=== PATIENT | female | born 1980 | race Caucasian/White ===

== ENCOUNTER 2017-06-05 23:29 | Emergency (ER) | payer OTHER ==
[2017-06-06 00:12] LABS: BILIRUBIN,URINE NEGATIVE (NEGATIVE)
[2017-06-06 00:13] LABS: UA w/ MICROSCOPIC CHARGE YES
[2017-06-06 00:14] LABS: HCG UR QUAL NEGATIVE
[2017-06-06 00:21] LABS: UR CULTURE IF IND INDICATED
[2017-06-06] MEDS ORDERED: PHENAZOPYRIDINE 100 MG TABLET PO STA (00:39)
[2017-06-06] MEDS ORDERED: cephALEXin 250 MG CAPSULE PO STA (00:39)
--- NOTE | 2017-06-06 00:41 | ED Physician Documentation ---
PD HPI FEMALE - Stated complaint Stated Complaint: FEMALE - Chief complaint Chief Complaint: General - History obtained from History obtained from: Patient - History of Present Illness Timing - onset: Yesterday Timing - details: Gradual onset, Still present Associated symptoms: Pelvic pain, Dysuria, Urinary frequency. No: Abdominal pain Contributing factors: No: Similar symptoms before: Treatment Recently seen: Not recently seen - Additional information Additional information: Patient is a 37 year old female wiht no significant past medical history who is presenting to the emergency department for dysuria and increased urinary frequency. Patient states that it has been going on the last few days. Patient sates that she was not able to get in to see her pmd and she developed some flank pain so she decided to come to the emergency department. Patient states that she is actively trying to get . Review of Systems Constitutional: denies: Fever, Chills Eyes: reports: Reviewed and negative Ears: reports: Reviewed and negative Nose: reports: Reviewed and negative Throat: reports: Reviewed and negative Cardiac: denies: Chest pain / pressure, Palpitations Respiratory: denies: Cough, Wheezing GI: reports: Nausea. denies: Abdominal Pain, Vomiting, Constipation, Diarrhea : reports: Dysuria, Frequency. 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 : None HEENT: None Psych: None Musculoskeletal: None Derm: None - Past Surgical History Past Surgical History: No - Present Medications Home Medications: Ambulatory Orders Medication Instructions Recorded Confirmed Levothyroxine [Synthroid] 112 mcg PO DAILY 09/05/14 06/05/17 Cephalexin [Keflex] 500 mg PO BID 7 Days #10 capsule 06/06/17 Ondansetron Odt [Zofran] 4 mg TL Q6H PRN #14 tablet 06/06/17 Phenazopyridine HCl [Pyridium] 200 mg PO TID PRN #6 tablet 06/06/17 - Allergies Allergies/Adverse Reactions: Allergies Allergy/AdvReac Type Severity Reaction Status Date / Time Sulfa (Sulfonamide Allergy Unknown Verified 06/05/17 23:52 Antibiotics) - Social History Does the pt smoke?: No Smoking Status: Never smoker Does the pt drink ETOH?: No Does the pt have substance abuse?: No - Immunizations Immunizations are current?: Yes - POLST Patient has POLST: No PD ED PE NORMAL - Vitals Vital signs reviewed: Yes - General General: Alert and oriented X 3, No acute distress, Well developed/nourished - HEENT HEENT: Atraumatic, PERRL, Pharynx benign - Neck Neck: Supple, no meningeal sign, No JVD - Cardiac Cardiac: RRR, No murmur - Respiratory Respiratory: No respiratory distress, Clear bilaterally - Abdomen Abdomen: Soft, Non tender, Non distended - Female Female : Deferred - Back Back: No CVA TTP - Derm Derm: Normal color, Warm and dry, No rash - Extremities Extremities: No deformity, Normal ROM s pain, No edema - Neuro Neuro: Alert and oriented X 3, No motor deficit, No sensory deficit, Normal speech - Psych Psych: Normal mood, Normal affect Results - Vitals Vitals: Vital Signs - 24 hr 06/05/17 23:51 Temperature 36.9 C Heart Rate 79 Respiratory 16 Rate Blood Pressure 145/103 H O2 Saturation 100 Oxygen O2 Source Room air - Labs Labs: Laboratory Tests 06/06/17 00:05 Urine Color YELLOW Urine Clarity CLEAR Urine pH 7.0 Ur Specific [place] 1.020 Urine Protein TRACE Urine Glucose (UA) NEGATIVE Urine Ketones NEGATIVE Urine Occult Blood MODERATE H Urine Nitrite NEGATIVE Urine Bilirubin NEGATIVE Urine Urobilinogen 0.2 (NORMAL) Ur Leukocyte Esterase NEGATIVE Urine RBC TNTC H Urine WBC 6-10 H Ur Squamous Epith Cells FEW Squamous Urine Bacteria Few Ur Microscopic Review INDICATED Urine Culture Comments INDICATED Urine HCG, Qual NEGATIVE PD MEDICAL DECISION MAKING - ED course Complexity details: reviewed old records, reviewed results, re-evaluated patient , considered differential, d/w patient ED course: Patient was seen and examined at bedside. Patient was well appearing and in no distress. urine was collected and showed signs concerning for cystitis. Patient was started on antibiotics and stable for discharge with outpatient follow up. Departure - Departure Disposition: 01 Home, Self Care Clinical Impression: Urinary tract infection Condition: Good Instructions: ED UTI Cystitis Female Follow-Up: DAMIEN MADISON [Primary Care Provider] - Within 3 Days Prescriptions: Cephalexin [Keflex] 500 mg PO BID 7 Days #10 capsule Ondansetron Odt [Zofran] 4 mg TL Q6H PRN #14 tablet PRN Reason: Nausea / Vomiting Phenazopyridine HCl [Pyridium] 200 mg PO TID PRN #6 tablet PRN Reason: dysuria Comments: Your symptoms today were likely secondary to a urinary tract infection. You had your first dose of antibiotics today and will need to take them for the next five days. It is important to stay well hydrated. You can take pyridium, motrin and tylenol as needed for pain. You should follow up with your doctor if your symptoms persist for more than the next few days. You can return to the emergency department at any time for new, worsening or uncontrollable symptoms.
[2017-06-06] MEDS ORDERED: cephALEXin 250 MG CAPSULE PO ONE (01:02)
[2017-06-06] MEDS ORDERED: PHENAZOPYRIDINE 100 MG TABLET PO ONE (01:02)
[2017-06-06 01:11] VITALS: BP 121/68
== END 2017-06-06 01:08 | disposition home or self-care (01) ==
LOC: ED 23:29
DX: N39.0 Urinary tract infection, site not specified (principal); E03.9 Hypothyroidism, unspecified
CPT/HCPCS: 81001; 81025; 87077; 87086; 87181; 99283; A9270; 81003

== ENCOUNTER 2017-06-22 12:02 | Emergency (ER) | payer OTHER ==
[2017-06-22 13:31] LABS: RAPID STREP SCREEN REAGENT QC YELLOW (YELLOW)
[2017-06-22] MEDS ORDERED: DEXAMETHASONE 10 MG/ML VIAL PO STA (13:50)
--- NOTE | 2017-06-22 13:52 | ED Physician Documentation ---
PD HPI HEENT - Stated complaint Stated Complaint: THROAT PX - Chief complaint Chief Complaint: Heent - History obtained from History obtained from: Patient - History of Present Illness Timing - onset: How many days ago (2) Timing - duration: Days (2) Timing - details: Gradual onset, Still present Location: Throat Improves: Medication Worsens: Swalllowing Associated symptoms: Fever, Congestion, Headache, Cough Similar symptoms before: Diagnosis (strep) Recently seen: Not recently seen - Additional information Additional information: 37-year-old female mother of 4 children who are sick with strep has developed symptoms. She has a sore throat fever congestion and cough. Review of Systems Constitutional: reports: Fever, Myalgias, Fatigue Eyes: denies: Decreased vision Ears: denies: Ear pain Nose: reports: Congestion Throat: reports: Sore throat Cardiac: denies: Chest pain / pressure, Palpitations Respiratory: reports: Cough. 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 HEENT: None Psych: None Musculoskeletal: None Derm: None - Past Surgical History Past Surgical History: No - Present Medications Home Medications: Ambulatory Orders Medication Instructions Recorded Confirmed Azithromycin [Zithromax] 250 mg PO DAILY #6 tablet 06/22/17 - Allergies Allergies/Adverse Reactions: Allergies Allergy/AdvReac Type Severity Reaction Status Date / Time Sulfa (Sulfonamide Allergy Unknown Verified 06/05/17 23:52 Antibiotics) - Social History Does the pt smoke?: No Smoking Status: Never smoker Does the pt drink ETOH?: Yes Does the pt have substance abuse?: No - Immunizations Immunizations are current?: Yes - POLST Patient has POLST: No PD ED PE NORMAL - Vitals Vital signs reviewed: Yes (Normal) - General General: No acute distress, Well developed/nourished - HEENT HEENT: Atraumatic, PERRL, EOMI, Other (Both TMs are mildly inflamed with rounding of landmarks the pharynx is with exudate and mild erythema.) - Neck Neck: Supple, no meningeal sign, No bony TTP - Cardiac Cardiac: RRR, No murmur - Respiratory Respiratory: No respiratory distress, Clear bilaterally - Abdomen Abdomen: Soft, Non tender - Back Back: No CVA TTP, No spinal TTP - Derm Derm: Normal color, Warm and dry, No rash - Extremities Extremities: No deformity, No edema - Neuro Neuro: No motor deficit, No sensory deficit Eye Opening: Spontaneous Motor: Obeys Commands Verbal: Oriented GCS Score: 15 - Psych Psych: Normal mood, Normal affect Results - Vitals Vitals: Vital Signs - 24 hr 06/22/17 12:19 Temperature 36.6 C Heart Rate 79 Respiratory 16 Rate O2 Saturation 99 Oxygen O2 Source Room air - Labs Labs: Laboratory Tests 06/22/17 13:05 Group A Strep Rapid Negative PD MEDICAL DECISION MAKING - ED course Complexity details: reviewed results, re-evaluated patient, considered differential, d/w patient ED course: 37-year-old female exposed to strep has a negative rapid strep this morning she does have otitis on examination and we will treat her with some azithromycin. Departure - Departure Disposition: 01 Home, Self Care Clinical Impression: Otitis media Qualifiers: Otitis media type: suppurative Chronicity: acute Laterality: bilateral Recurrence: not specified as recurrent Spontaneous tympanic membrane rupture: without spontaneous rupture Qualified Code(s): H66.003 - Acute suppurative otitis media without spontaneous rupture of ear drum, bilateral Instructions: ED Otitis Media Acute Adult Follow-Up: DAMIEN MADISON [Primary Care Provider] - Prescriptions: Azithromycin [Zithromax] 250 mg PO DAILY #6 tablet
[2017-06-22] MEDS ORDERED: DEXAMETHASONE 10 MG/ML VIAL ONE (14:01)
[2017-06-22] MEDS ORDERED: CHERRY SYRUP 10 ML UDC PO ONE (14:02)
== END 2017-06-22 14:25 | disposition home or self-care (01) ==
LOC: ED 12:02
DX: H66.003 Acute suppurative otitis media without spontaneous rupture of ear drum, bilateral (principal); E03.9 Hypothyroidism, unspecified
CPT/HCPCS: 87070; 87430; 99283; A9270

== ENCOUNTER 2017-12-13 16:29 | Emergency (ER) | payer OTHER ==
[2017-12-13 18:09] LABS: BILIRUBIN,URINE NEGATIVE (NEGATIVE); GLUCOSE, URINE (UA) NEGATIVE (NEGATIVE); KETONES,URINE (UA) NEGATIVE (NEGATIVE); LEUKOCYTE ESTERASE, URINE NEGATIVE (NEGATIVE); NITRITE,URINE NEGATIVE (NEGATIVE); OCCULT BLOOD,URINE NEGATIVE (NEGATIVE); PROTEIN,URINE NEGATIVE (NEGATIVE); UROBILINOGEN,URINE 0.2 (NORMAL) E.U./dL (NORMAL)
[2017-12-13 18:20] LABS: CLARITY,URINE CLEAR (CLEAR)
--- NOTE | 2017-12-13 19:15 | ED Physician Documentation ---
PD HPI ABD PAIN - Stated complaint Stated Complaint: ABD PX V/N - Chief complaint Chief Complaint: Abd Pain - History obtained from History obtained from: Patient - History of Present Illness Timing - onset: How many weeks ago (2-3) Timing - duration: Weeks (2-3) Timing - details: Gradual onset, Waxing and waning Quality: Aching, Sharp, Pain Location: RUQ, Epigastric Radiation: No: Lower back, Right flank, Right shoulder Improved by: No: Eating Worsened by: Eating Associated symptoms: Nausea, Loss of appetite, Other (she is 21 weeks.) . No: Fever, Vomiting, Diarrhea Similar symptoms before: Has not had sx before Recently seen: Clinic (seen by [employer] today and referred to ED for eval/US) Review of Systems Constitutional: denies: Fever Nose: denies: Rhinorrhea / runny nose, Congestion Throat: denies: Sore throat Cardiac: denies: Chest pain / pressure, Palpitations Respiratory: denies: Dyspnea, Cough GI: reports: Abdominal Pain, Nausea. 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 : None HEENT: None Psych: None Musculoskeletal: None Derm: None - Past Surgical History Past Surgical History: No - Present Medications Home Medications: Ambulatory Orders Medication Instructions Recorded Confirmed Azithromycin [Zithromax] 250 mg PO DAILY #6 tablet 06/22/17 Famotidine [Pepcid] 20 mg PO ONCE #30 tablet 12/13/17 Ondansetron Odt [Zofran] 4 mg TL Q6H PRN #15 tablet 12/13/17 Promethazine Supp [Phenergan Supp] 25 mg SD Q6H PRN #5 supp 12/13/17 Sucralfate 1 gm PO TID #15 tablet 12/13/17 - Allergies Allergies/Adverse Reactions: Allergies Allergy/AdvReac Type Severity Reaction Status Date / Time Sulfa (Sulfonamide Allergy Unknown Verified 06/05/17 23:52 Antibiotics) - Social History Does the pt smoke?: No Smoking Status: Never smoker Does the pt drink ETOH?: Yes Does the pt have substance abuse?: No - Immunizations Immunizations are current?: Yes - POLST Patient has POLST: No PD ED PE NORMAL - Vitals Vital signs reviewed: Yes - General General: Alert and oriented X 3, No acute distress, Well developed/nourished - HEENT HEENT: Pharynx benign - Neck Neck: Supple, no meningeal sign, No adenopathy - Cardiac Cardiac: RRR, No murmur - Respiratory Respiratory: Clear bilaterally - Abdomen Abdomen: Normal bowel sounds, Soft, Non distended, No organomegaly, Other ( tender RUQ without percussion tenderness nor guarding. Gravid with fundus above umbilicus. ) - Female Female : Deferred - Rectal Rectal: Deferred - Back Back: No CVA TTP - Derm Derm: Normal color, Warm and dry, No rash - Extremities Extremities: No tenderness to palpate, Normal ROM s pain, No edema, No calf tenderness / cord - Neuro Neuro: Alert and oriented X 3, No motor deficit, Normal speech Results - Vitals Vitals: Oxygen O2 Source Room air - Labs Labs: Laboratory Tests 12/13/17 12/13/17 12/13/17 17:08 19:39 19:39 WBC 10.0 RBC 4.12 L Hgb 12.1 Hct 36.2 L MCV 87.7 MCH 29.5 MCHC 33.6 RDW 13.3 Plt Count 209 MPV 8.3 Neut # 7.5 H Lymph # 1.6 Shannon # 0.7 Eos # 0.2 Baso # 0.0 Absolute Nucleated RBC 0.00 Nucleated RBC % 0.0 Sodium 134 L Potassium 3.5 Chloride 101 Carbon Dioxide 25 Anion Gap 8.0 BUN 6 Creatinine 0.5 Estimated GFR (MDRD) 138 Glucose 106 H Calcium 9.3 Total Bilirubin 0.4 AST 12 ALT 13 Alkaline Phosphatase 49 Total Protein 6.8 Albumin 3.5 Globulin 3.3 Albumin/Globulin Ratio 1.1 Lipase 23 Urine Color YELLOW Urine Clarity CLEAR Urine pH 6.0 Ur Specific [place] 1.010 Urine Protein NEGATIVE Urine Glucose (UA) NEGATIVE Urine Ketones NEGATIVE Urine Occult Blood NEGATIVE Urine Nitrite NEGATIVE Urine Bilirubin NEGATIVE Urine Urobilinogen 0.2 (NORMAL) Ur Leukocyte Esterase NEGATIVE Ur Microscopic Review NOT INDICATED Urine Culture Comments NOT INDICATED PD MEDICAL DECISION MAKING - ED course Complexity details: considered differential (sounded like gallbladder, but labs and U/S are normal. Consider duodenitis or gastritis. ), d/w patient Departure - Departure Disposition: 01 Home, Self Care Clinical Impression: Right upper quadrant abdominal pain Qualifiers: Weeks of gestation: 21 weeks Qualified Code(s): Z3A.21 - 21 weeks gestation of Vomiting Qualifiers: Vomiting type: unspecified Vomiting Intractability: non-intractable Nausea presence: with nausea Qualified Code(s): R11.2 - Nausea with vomiting, unspecified Condition: Stable Record reviewed to determine appropriate education?: Yes Instructions: ED Abdominal Pain Unkn Cause Follow-Up: DAMIEN MADISON [Primary Care Provider] - Prescriptions: Famotidine [Pepcid] 20 mg PO ONCE #30 tablet Ondansetron Odt [Zofran] 4 mg TL Q6H PRN #15 tablet PRN Reason: Nausea / Vomiting Promethazine Supp [Phenergan Supp] 25 mg SD Q6H PRN #5 supp PRN Reason: Nausea / Vomiting Sucralfate 1 gm PO TID #15 tablet Comments: Your blood tests and ultrasound appear normal. It does not appear to be a gallbladder or pancreas problem causing your pain. Consider the stomach or initial part of the intestine call the duodenum. Take famotidine daily for the next month. Add sucralfate to coat the stomach and duodenum 3 times a day for the next few days. Use ondansetron if needed for nausea. He can use promethazine suppository if needed for persistent vomiting despite the medicine. Follow-up with your primary care in the next few days for a recheck and follow-up on your symptoms. Discharge Date/Time: 12/13/17 21:32
[2017-12-13] MEDS ORDERED: ONDANSETRON 4 MG/2 ML VIAL IVP STA (19:29)
[2017-12-13] MEDS ORDERED: SODIUM CHLORIDE 0.9% 1,000 ML IV ONE (19:29)
[2017-12-13 19:46] LABS: BASOPHILS % (AUTO) 0.5 %; EOSINOPHILS # (AUTO) 0.2 10^3/uL (0.0-0.7); HGB - HEMOGLOBIN 12.1 g/dL (12.0-16.0); LYMPHOCYTES # (AUTO) 1.6 10^3/uL (1.5-3.5); LYMPHOCYTES % (AUTO) 16.1 %; MEAN CORPUSCULAR HEMOGLOBIN 29.5 pg (27.0-31.0); MEAN CORPUSCULAR HGB CONC 33.6 g/dL (32.0-36.0); MEAN CORPUSCULAR VOLUME 87.7 fL (81.0-99.0); MEAN PLATELET VOLUME 8.3 fL (7.9-10.8); MONOCYTES # (AUTO) 0.7 10^3/uL (0.0-1.0); MONOCYTES % (AUTO) 6.6 %; NEUTROPHILS # (AUTO) 7.5 10^3/uL (1.5-6.6); NEUTROPHILS % (AUTO) 74.8 %; PLT - PLATELET COUNT 209 10^3/uL (130-450); RED BLOOD COUNT 4.12 10^6/uL (4.20-5.40); RED CELL DISTRIBUTION WIDTH 13.3 % (12.0-15.0)
[2017-12-13 19:57] LABS: ALBUMIN 3.5 g/dL (3.2-5.5); ALBUMIN/GLOBULIN RATIO 1.1 (1.0-2.2); BILIRUBIN,TOTAL 0.4 mg/dL (0.2-1.0); CALCIUM 9.3 mg/dL (8.5-10.3); CREATININE 0.5 mg/dL (0.4-1.0); TOTAL PROTEIN 6.8 g/dL (6.7-8.2)
--- NOTE | 2017-12-13 20:40 | Ultrasound Preliminary Report ---
Exam: US ABDOMEN LIMITED IMPRESSION: Within normal limits. See above. [facility] SITE ID: [id number]
--- NOTE | 2017-12-13 20:40 | Ultrasound Report ---
EXAM: ABDOMEN ULTRASOUND LIMITED, RUQ EXAM DATE: 12/13/2017 08:18 PM. CLINICAL HISTORY: Right upper quadrant pain for 2 weeks. 20 weeks . COMPARISON: None. TECHNIQUE: Real-time scanning was performed with static images obtained. FINDINGS: Liver: Normal in size and echotexture. 17.6 cm. Main portal vein flow: Hepatopetal. Gallbladder: Gallbladder wall measures 2.3 mm. No gallbladder thickening or pericholecystic fluid. Th e gallbladder is partially contracted, the patient is not NPO. This mildly limits the exam. Negative sonographic Allen sign. Biliary System: Common duct measures 4 mm. No intrahepatic or extrahepatic ductal dilatation. Other: The right kidney measures 12.5 cm in length and there is no hydronephrosis. Visualized portions of the pancreas appear unremarkable. heart rate measures 174 bpm. IMPRESSION: Within normal limits. See above. SHANE[facility] Referring Provider Line: [phone] SITE ID: [id number]
[2017-12-13 20:45] VITALS: BP 107/71
[2017-12-13] MEDS ORDERED: ONDANSETRON ODT 4 MG Prepack 2 TL PRN (21:03)
[2017-12-13] MEDS ORDERED: ACETAMINOPHEN 325 MG TABLET PO STA (21:03)
[2017-12-13] MEDS ORDERED: FAMOTIDINE 20 MG TABLET PO STA (21:03)
[2017-12-13] MEDS ORDERED: SUCRALFATE 1 GM/10 ML UDC PO STA (21:03)
== END 2017-12-13 21:32 | disposition home or self-care (01) ==
LOC: ED 16:29
DX: O26.892 Other specified pregnancy related conditions, second trimester (principal); R10.11 Right upper quadrant pain; R11.2 Nausea with vomiting, unspecified; Z3A.21 21 weeks gestation of pregnancy; E03.9 Hypothyroidism, unspecified
CPT/HCPCS: 36415; 76705; 80053; 81003; 83690; 85025; 96374; 99283; A9270; 81001; 87086

== ENCOUNTER 2018-08-30 00:26 | Emergency (ER) | payer OTHER ==
[2018-08-30 00:45] VITALS: BP 146/90
[2018-08-30] MEDS ORDERED: NAPROXEN 250 MG TABLET PO STA (01:03)
[2018-08-30] MEDS ORDERED: cephALEXin 250 MG CAPSULE PO STA (01:05)
--- NOTE | 2018-08-30 01:07 | ED Physician Documentation ---
History of Present Illness - Stated complaint Stated Complaint: RT BREAST PAIN - Chief complaint Chief Complaint: General - Additonal information Additional information: 38-year-old female presents the emergency department with right breast pain and redness. The patient is currently breast-feeding and reports pain and redness in her breast which is associated with fevers and chills. The patient has a history of mastitis and this is similar to prior episodes. No relieving factors. Symptoms are described as moderate. 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 HEENT: None Psych: None Musculoskeletal: None Derm: None - Past Surgical History Past Surgical History: No - Present Medications Home Medications: Ambulatory Orders Medication Instructions Recorded Confirmed Azithromycin [Zithromax] 250 mg PO DAILY #6 tablet 06/22/17 Famotidine [Pepcid] 20 mg PO ONCE #30 tablet 12/13/17 Ondansetron Odt [Zofran] 4 mg TL Q6H PRN #15 tablet 12/13/17 Promethazine Supp [Phenergan Supp] 25 mg [place] Q6H PRN #5 supp 12/13/17 Sucralfate 1 gm PO TID #15 tablet 12/13/17 Cephalexin [Keflex] 500 mg PO Q6H #40 capsule 08/30/18 - Allergies Allergies/Adverse Reactions: Allergies Allergy/AdvReac Type Severity Reaction Status Date / Time Sulfa (Sulfonamide Allergy Unknown Verified 06/05/17 23:52 Antibiotics) - Social History Does the pt smoke?: No Smoking Status: Never smoker Does the pt drink ETOH?: Yes Does the pt have substance abuse?: No - Immunizations Immunizations are current?: Yes - POLST Patient has POLST: No PD ED PE NORMAL - General General: Alert and oriented X 3, No acute distress - HEENT HEENT: Atraumatic, PERRL, EOMI, Ears normal - Cardiac Cardiac: RRR (Regular tachycardia), Strong equal pulses - Respiratory Respiratory: No respiratory distress, Clear bilaterally - 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 The patient had erythematous changes and tenderness throughout her breast. There is no focal area to suggest abscess.) Results - Vitals Vitals: Vital Signs - 24 hr 08/30/18 08/30/18 00:42 00:48 Temperature 38.5 C H Heart Rate 119 H 119 H Respiratory 18 18 Rate Blood Pressure 146/90 H 146/90 H O2 Saturation 100 99 Oxygen O2 Source Room air PD MEDICAL DECISION MAKING - ED course ED course: The patient will be treated for mastitis. The patient appears appropriate for discharge and ongoing outpatient management. Clinically there is no evidence of an abscess. I discussed warning signs and recommended returning to the emergency department immediately for any worsening or any concerns Departure - Departure Disposition: 01 Home, Self Care Clinical Impression: Mastitis Condition: Good Instructions: ED Breast Infec Follow-Up: DAMIEN MADISON [Primary Care Provider] - Within 1 week Prescriptions: Cephalexin [Keflex] 500 mg PO Q6H #40 capsule Comments: Please return for any worsening or any concerns Discharge Date/Time: 08/30/18 01:21
== END 2018-08-30 01:21 | disposition home or self-care (01) ==
LOC: ED 00:26
DX: N61.0 Mastitis without abscess (principal)
CPT/HCPCS: 99283; A9270

== ENCOUNTER 2022-04-28 14:00 | Outpatient (CLI) | payer OTHER ==
[2022-04-28 14:39] VITALS: BP 122/86
--- NOTE | 2022-04-28 14:39 | SLEEP CARE CONSULTATION ---
Information from patient questionnaire entered by Henny Ashby MA. I have reviewed and concur with the information entered by Henny Ashby MA. This document represents the service I personally performed and the decisions made by me, Jennifer Severino ARNP. History of Present Illness Service Date and Time: 04/28/2022 1400 Reason for Visit: New patient Chief Complaint: reports: Insomnia, Unrefreshed sleep, Excessive daytime sleepiness, Observed pauses in breathing, Fatigue, Frequent awakenings at night, Other Date of Onset: YEARS Usual bedtime: 11PM Time it takes to fall asleep: 1 HR Snores at night: Yes Observed to quit breathing while asleep: Yes Sleeps alone due to snoring: No Number of times waking at night: 2 TO 4 TIMES; can go right back to sleep Reasons for waking at night: reports: Snoring, Bathroom, Other (NOISE children, coughing (not often)) Toss, Turn, or Twitch while sleeping: No Recalls having dreams: Yes Usually gets out of bed at: 6:30 AM TO 9:30AM; school days vs summer time Feels refreshed in the morning: No Morning headache: Yes (2-3 times a week; has migraine issues every few months) Sleepy or fatigued during the day: Yes Ever fallen asleep while driving: No (has driving anxiety; drives short distances; will not drive if tired) Takes day naps: Yes (3-4 days a week, recently; 1 hr at most) Dreams during day naps: No (not ususally) Prior sleep studies: No Additional HPI information: I had the pleasure of seeing AILEEN BENSON today regarding the possibility of her having a sleep disorder. Her current complaints are daytime sleepiness, fatigue, frequent night awakenings, insomnia, observed pauses in breathing, snoring and unrefreshed sleep. She states she has been encouraged to get her snoring checked out. Her mother has sleep apnea and is using a CPAP. Her tells her that she snores loudly and that she has pauses in breathing when sleeping. She states she does not often wake up feeling rested. She has 6 children and has been up at night with kids for many years. She states she is a light sleeper and can wake up easily from noise or being touched. - Parasomnia Symptoms Ever been unable to move upon waking from sleep: Yes (not recently) Walks in sleep: No Talks in sleep: No Ever acted out dreams in sleep: No Ever felt weak in the knees when startled or emotional: No Bothered by creepy, crawly, restless sensations in legs: No Problems with memory or concentration: Yes (both; forget stuff all the time; sometimes concentation too) Subjective Initial Petty Sleepiness Scale score: 16 (04/2022) Past Medical History Past Medical History: reports: Hypothyroidism, Anxiety, Other (FOOT PAIN) Social History The patient's occupation is a [employer]. Patient is and lives in [place]. Have you smoked in the past 12 months: No Alcohol use: No Caffeine use: No Family History Family history of sleep disordered breathing: Yes Family Hx Sleep Apnea: Mother: Snoring, Sleep apnea - Treated, Sibling: Snoring, Sleep apnea - Untreated Allergies and Home Medications Drug allergies reviewed: Yes (Sulfa) Home medication list reviewed: Yes Allergy and home medication list: Allergies Sulfa (Sulfonamide Antibiotics) Allergy (Verified 06/05/17 23:52) Unknown Medications: Synthroid Ibuprofen, prn Tylenol, prn Review of Systems Weight gain over past 5 years: 30 Cardiovascular: denies: high blood pressure Gastrointestinal: reports: heartburn Urinary: reports: incontinence Neurological: reports: headaches, gait or balance problems Psychiatric: reports: anxiety (with with some panic attacks) Ear/Nose/Throat: reports: dry mouth/throat (sometimes when waking up from sleeping/naps). denies: tonsillectomy, wisdom teeth removed Endocrine: reports: thyroid disease, unexplained weakness Musculoskeletal: reports: neck pain, back pain Immunologic: reports: allergies to food or environment (berries) Physical Exam Vital signs obtained and entered by: [facility] Blood Pressure: 122/86 (LEFT) Cuff size: wrist Heart Rate: 94 O2 Saturation: 98 Height: 5 ft 3 in Weight: 206 lb Body Mass Index: 36.5 BMI Classification: Obese Neck circumference: 16 Mouth and throat: narrow oropharynx Soft palate: long Hard palate: normal Uvula: normal Uvula visualization: 25% Mallampati Class III Tongue: enlarged in size with teeth langston on lateral edges Tonsils: small Neck: normal w/o lymphadenopathy or thyromegaly Heart: regular rate and rhythm Lungs: clear bilaterally Impression and Plan 1. Suspected Obstructive Sleep Apnea-Hypopnea Syndrome, as suggested by a history of loud and irregular snoring, observed cessation of breath while asleep, morning headache, frequent awakening during the night, unrefreshed sleep, cognitive impairment, and excessive daytime sleepiness. Narrow oropharynx and obesity are common predisposing factors for obstructive sleep apnea-hypopnea syndrome. I recommend proceeding to polysomnography to confirm the diagnosis and to assess severity. If the patient has significant sleep disordered breathing, a manual CPAP titration study will also be performed to find the optimal treatment pressure. I informed the patient of what the sleep studies involve and after some discussion, obtained agreement to proceed. The pathophysiology of obstructive sleep apnea-hypopnea syndrome was discussed with the patient and health risks of cardiovascular and cerebrovascular disease if not treated. Risks of drowsy driving discussed in detail and patient advised to avoid long distance driving and to bone char puller at the first sign of drowsiness. Patient agreed to plan. * Schedule polysomnography * Avoid long distance driving or driving when feeling sleepy. * Avoid alcohol, sedative and muscle relaxant around bedtime. * Attempt to lose weight. * Review instructions provided by trained office staff on how to prepare for the sleep study. * Return for follow-up after sleep study completed. Counseling Topics: Weight loss health impact Visit Type: In Office Time Spent with Patient (minutes): 32 Provider Statement: I spent 100% of the Face to Face Visit with the patient with greater than 50% spent counseling the patient and coordination of care.
== END 2022-04-28 14:01 | disposition home or self-care (01) ==
LOC: SC 14:00
PROVIDERS: ATTEND Nurse Practitioner Family
DX: G47.10 Hypersomnia, unspecified (principal); R06.83 Snoring; R06.81 Apnea, not elsewhere classified; G47.8 Other sleep disorders; R51.9 Headache, unspecified; R41.89 Other symptoms and signs involving cognitive functions and awareness
CPT/HCPCS: 99203; 99212

== ENCOUNTER 2022-05-27 19:27 | Outpatient (CLI) | payer OTHER | END 2022-05-27 19:28 | disposition home or self-care (01) | LOC: SC 19:27 | PROVIDERS: ATTEND Nurse Practitioner Family | DX: G47.33 Obstructive sleep apnea (adult) (pediatric) (principal) | CPT/HCPCS: 95810 ==

== ENCOUNTER 2022-09-29 13:52 | Outpatient (CLI) | payer OTHER ==
[2022-09-29 14:24] VITALS: BP 112/62
--- NOTE | 2022-09-29 14:24 | SLEEP CARE CONSULTATION ---
Information from patient questionnaire entered by Aileen Carranza. I have reviewed and concur with the information entered by Aileen Carranza. This document represents the service I personally performed and the decisions made by me, Jennifer Severino ARNP. History of Present Illness Service Date and Time: 09/29/2022 1352 Previous diagnosis: Extremely Severe, Obstructive Sleep Apnea-Hypopnea Syndrome AHI: 106.7 (in 2021) Reason for follow up: first compliance Equipment type: CPAP (RESMED Airsense 10, s/u 07/2022; SD CARD NEEDED FOR DOWNLOAD AND PRESSURE CHANGE) Equipment obtained from: Other ([facility]) Mask style: Nasal (over the nose) Backup mask available: No (will keep old mask when replaced) Last cushion change: 1 month + Prior sleep studies: No Type of Sleep Study: Polysomnography (COMPLETED 05-27-22) HPI additional information: AILEEN BENSON was diagnosed to have extremely severe, AHI 106.7, obstructive sleep apnea-hypopnea syndrome and returned today with children for CPAP therapy first compliance follow-up. Sleep Study - Results Type of Sleep Study: Polysomnography (COMPLETED 05-27-22) Prior sleep studies: No CPAP Compliance Data - Data Reviewed with Patient Average duration of nightly device use: 6 hours 4 minutes Compliance rate %: 92 (46/49 days used) Current pressure setting (cmH2O): 5-20 (median 5.9, avg 7.7, max 8.8) Average residual AHI: 0.4 Central apnea: 0.2 Obstructive apnea: 0.2 Average large leak: 0.4 Subjective Missed days of use due to: reports: illness Patient concerns: reports: air blowing in eyes (sometimes, needs a change in cushion). denies: aerophagia, mask discomfort, mask leak noise, condensation in mask/hose, nasal congestion, dry mouth, nose, throat, epistaxis Observed to snore while using device: No Current pressure setting perceived as: comfortable On therapy, patient: reports: sleeping better, awakening more refreshed, being more awake and alert during the day, more rested overall. denies: drowsiness while driving Initial [place] Sleepiness Scale score: 16 (04/2022) Current [place] Sleepiness Scale score: 7 (09/29/22) Allergies and Home Medications Drug allergies reviewed: Yes (sulfa) Home medication list reviewed: Yes (no changes) Review of Systems Review of systems same as previous: Yes (no changes) Physical Exam Vital signs obtained and entered by: AILEEN Dowd MA Blood Pressure: 112/62 (LEFT ARM) Cuff size: long Heart Rate: 77 O2 Saturation: 97 Height: 5 ft 3 in Weight: 205 lb 6.4 oz Weight change since last visit: 1 ob gain Body Mass Index: 36.3 BMI Classification: Obese Impression and Plan 1. Obstructive Sleep Apnea-Hypopnea Syndrome, extremely severe, with good treatment compliance and good apnea control. On CPAP therapy, the patient has better sleep quality and is more rested overall. Patient is doing very well with her CPAP and has significant improvement of her sleep apnea. The patients pressure will be changed to autoCPAP 6-9 cmH20 to reflect pressure being used. Patient advised to contact me if pressure change is uncomfortable so that it can be adjusted. Goals for apnea control discussed. Patient's apnea severity and rationale for treatment to reduce apnea, improve sleep quality and reduce cardiovascular and cerebrovascular events was reviewed. I also reviewed the benefit of consistent device use of CPAP for anxiety. 2. Obesity, unspecified. Currently patients BMI is 36.3. Obesity increases the risk of apnea, CPAP pressure requirements and overall health risks especially cardiovascular and diabetes. Thus patient is advised to lose weight. * Change auto CPAP pressure to 6-9 cmH2O * Notify me if snoring with mask or feeling that the pressure is too much or too little * Attempt to lose weight * Call this office if any problems using CPAP * Return for follow up in 1-2 months, or sooner if concerns arise Counseling Topics: Spare mask, Weight loss health impact Visit Type: In Office Time Spent with Patient (minutes): 23 Provider Statement: I spent 100% of the Face to Face Visit with the patient with greater than 50% spent counseling the patient and coordination of care.
== END 2022-09-29 13:53 | disposition home or self-care (01) ==
LOC: SC 13:52
PROVIDERS: ATTEND Nurse Practitioner Family
DX: G47.33 Obstructive sleep apnea (adult) (pediatric) (principal); E66.9 Obesity, unspecified; Z68.36 Body mass index [BMI] 36.0-36.9, adult
CPT/HCPCS: 99212; 99213

== ENCOUNTER 2022-10-12 21:21 | Emergency (ER) | payer OTHER ==
[2022-10-12 21:32] VITALS: BP 136/64
--- NOTE | 2022-10-12 22:36 | ED Physician Documentation ---
History of Present Illness - Stated complaint Stated Complaint: LT FOOT PX - Chief complaint Chief Complaint: Ext Problem - History obtained from History obtained from: Patient - Additonal information Additional information: 42-year-old woman with past medical history of plantar fasciitis presents with left foot pain for the past couple weeks. Denies specific injury. She is going on a trip and open to make sure she does not have a stress fracture. Review of Systems Musculoskeletal: reports: Extremity pain. denies: Joint pain Neurologic: denies: Focal weakness, Numbness PD PAST MEDICAL HISTORY - Past Medical History Cardiovascular: None Respiratory: None Endocrine/Autoimmune: HyPOthyroidism GI: None DIRECTOR OF DATABASE MARKETING: None : None HEENT: None Psych: None Musculoskeletal: None Derm: None - Past Surgical History Past Surgical History: No - Present Medications Home Medications: Ambulatory Orders Medication Instructions Recorded Confirmed Famotidine [Pepcid] 20 mg PO ONCE #30 tablet 12/13/17 09/29/22 Ondansetron Odt [Zofran] 4 mg TL Q6H PRN #15 tablet 12/13/17 09/29/22 Promethazine Supp [Phenergan Supp] 25 mg IN Q6H PRN #5 supp 12/13/17 09/29/22 Sucralfate 1 gm PO TID #15 tablet 12/13/17 09/29/22 - Allergies Allergies/Adverse Reactions: Allergies Allergy/AdvReac Type Severity Reaction Status Date / Time Sulfa (Sulfonamide Allergy Unknown Verified 10/12/22 21:31 Antibiotics) - Social History Does the pt smoke?: No Smoking Status: Never smoker Does the pt drink ETOH?: Yes Does the pt have substance abuse?: No - Immunizations Immunizations are current?: Yes - POLST Patient has POLST: No PD ED PE NORMAL - Vitals Vital signs reviewed: Yes - General General: Alert and oriented X 3, No acute distress, Well developed/nourished - HEENT HEENT: Atraumatic, PERRL, EOMI - Derm Derm: Normal color, Warm and dry - Extremities Extremities: No deformity, No tenderness to palpate, Normal ROM s pain, Other (Discomfort to palpation of left fifth distal metatarsal.2+ LLE DP and PT pulses. Normal sensation and movement.) Results - Vitals Vitals: Vital Signs - 24 hr 10/12/22 21:26 Temperature 36.9 C Heart Rate 77 Respiratory 16 Rate Blood Pressure 136/64 H O2 Saturation 100 Oxygen O2 Source Room air PD Medical Decision Making - ED course ED course: 42-year-old woman presents with left outer lateral foot pain for the past 3 weeks, With benign exam and normal foot x-ray in the emergency department per wet read by emergency physician. Patient declined analgesia. Plan to f/u with pcp for referral to podiatry. symptomatic care discussed. return precautions given. Departure - Departure Disposition: Home, Self Care Clinical Impression: Foot pain, left Condition: Stable Instructions: ED SAI, Toe Extension Follow-Up: Bear Gallardo DPM [Physician No Access] - Comments: You were seen in the emergency department for foot pain. Your x-ray did not show a break in the bone. Please follow-up with your primary care provider for referral to podiatry. Return to the emergency department for new or worsening symptoms or other concerns. Take ibuprofen 600 mg every 6 hours as needed for pain.
--- NOTE | 2022-10-12 22:38 | XRAY Report ---
PROCEDURE: Foot 3 View LT INDICATIONS: L fifth distal metatarsal pain X 3 weeks TECHNIQUE: 3 views of the foot were acquired. COMPARISON: None. FINDINGS: Bones: No fractures or dislocations. There is mild degeneration of the interphalangeal joints. No s uspicious bony lesions. Soft tissues: No tibiotalar joint effusion. Achilles tendon appears normal. IMPRESSION: 1. No fracture or dislocation. Reviewed by: Vel Pascual MD on 10/12/2022 10:37 PM [facility] Approved by: Vel Pascual MD on 10/12/2022 10:37 PM [facility] Station ID: [id number]
== END 2022-10-12 22:46 | disposition home or self-care (01) ==
LOC: ED 21:21
DX: M79.672 Pain in left foot (principal); E03.9 Hypothyroidism, unspecified
CPT/HCPCS: 99283

== ENCOUNTER 2022-11-17 13:47 | Outpatient (CLI) | payer OTHER ==
--- NOTE | 2022-11-17 14:24 | SLEEP CARE CONSULTATION ---
Information from patient questionnaire entered by Aileen Carranza. I have reviewed and concur with the information entered by Aileen Carranza. This document represents the service I personally performed and the decisions made by me, Jennifer Severino ARNP. History of Present Illness Service Date and Time: 11/17/2022 1347 Previous diagnosis: Extremely Severe, Obstructive Sleep Apnea-Hypopnea Syndrome AHI: 106.7 (in 2021) Reason for follow up: other (2 MONTH F/U ) Accompanied by: child Equipment type: CPAP (RESMED Airsense 10, s/u 07/2022; SD CARD NEEDED FOR DOWNLOAD AND PRESSURE CHANGE) Equipment obtained from: Other ([facility]; getting supplies) Mask style: Nasal (over the nose) Backup mask available: Yes (old mask) Last cushion change: 1 week Prior sleep studies: No Type of Sleep Study: Polysomnography (COMPLETED 05-27-22) HPI additional information: AILEEN BENSON was diagnosed to have extremely severe, AHI 106.7, obstructive sleep apnea-hypopnea syndrome and returned today for CPAP therapy two month with pressure change follow-up. Sleep Study - Results Type of Sleep Study: Polysomnography (COMPLETED 05-27-22) Prior sleep studies: No CPAP Compliance Data - Data Reviewed with Patient Average duration of nightly device use: 6 hours 18 minutes Compliance rate %: 90 (57/60 days used) Current pressure setting (cmH2O): 6-9 Average residual AHI: 0.3 Central apnea: 0.1 Obstructive apnea: 0.2 Average large leak: 0.2 LPM Subjective Missed days of use due to: reports: travel Patient concerns: denies: aerophagia, mask discomfort, air blowing in eyes, mask leak noise, condensation in mask/hose, nasal congestion, dry mouth, nose, throat, epistaxis Observed to snore while using device: No Current pressure setting perceived as: comfortable On therapy, patient: reports: sleeping better, awakening more refreshed, being more awake and alert during the day, more rested overall. denies: drowsiness while driving Initial [place] Sleepiness Scale score: 16 (04/2022) Current [place] Sleepiness Scale score: 9 (11/17/22) Allergies and Home Medications Known drug allergies: Yes (Sulfa) Drug allergies reviewed: Yes Home medication list reviewed: Yes (no changes) Allergy and home medication list: Allergies Sulfa (Sulfonamide Antibiotics) Allergy (Verified 11/16/22 10:20) Unknown Review of Systems Review of systems same as previous: Yes (no changes) Physical Exam Vital signs obtained and entered by: AILEEN Dowd MA Blood Pressure: 130/80 (LEFT ARM) Cuff size: regular Heart Rate: 75 O2 Saturation: 98 Height: 5 ft 3 in Weight: 206 lb 6.4 oz Body Mass Index: 36.6 BMI Classification: Obese Impression and Plan 1. Obstructive Sleep Apnea-Hypopnea Syndrome, extremely severe, with good treatment compliance and good apnea control. On CPAP therapy, the patient has better sleep quality and is more rested overall. Patient is doing well with therapy and has significant improvement of her sleep apnea. She states the only problem was when she put her mask cushion on upside down and it was leaking air. When she realized it was not right and turned it right side up it has been working well. Patient's apnea severity and rationale for treatment to reduce apnea, improve sleep quality and reduce cardiovascular and cerebrovascular events was reviewed. I also reviewed the benefit of consistent device use of CPAP for anxiety. 2. Obesity, unspecified. Currently patients BMI is 36.6. Obesity increases the risk of apnea, CPAP pressure requirements and overall health risks especially cardiovascular and diabetes. Thus patient is advised to lose weight. The patient's CPAP pressure range should accommodate some weight loss. * Continue auto CPAP pressure at 6-9 cmH2O * Notify me if snoring with mask or feeling that the pressure is too much or too little * Attempt to lose weight * Call this office if any problems using CPAP * Return for follow up in 3 months, or sooner if concerns arise Counseling Topics: Spare mask, Weight loss health impact Visit Type: In Office Time Spent with Patient (minutes): 22 Provider Statement: I spent 100% of the Face to Face Visit with the patient with greater than 50% spent counseling the patient and coordination of care.
[2022-11-17 14:25] VITALS: BP 130/80
== END 2022-11-17 13:48 | disposition home or self-care (01) ==
LOC: SC 13:47
PROVIDERS: ATTEND Nurse Practitioner Family
DX: G47.33 Obstructive sleep apnea (adult) (pediatric) (principal); E66.9 Obesity, unspecified; Z68.36 Body mass index [BMI] 36.0-36.9, adult
CPT/HCPCS: 99212; 99213

== ENCOUNTER 2023-03-02 10:52 | Outpatient (CLI) | payer OTHER ==
--- NOTE | 2023-03-02 11:12 | Sleep Patient Instructions ---
Sleep Center Visit Summary - Patient Visit Information Reason for Visit: Three month follow up for PAP therapy - Patient Instructions Additional Instructions: You were here for follow up of CPAP therapy. You will be continued on CPAP therapy with pressure at 6-9 cmH2O. You should follow up with sleep care in 6 months. You may contact us sooner for any questions or concerns. - Clinic Information Contact: [facility] [address] [place] [address] [email or web address] T: [phone]
--- NOTE | 2023-03-02 11:17 | SLEEP CARE CONSULTATION ---
Information from patient questionnaire entered by Aileen Carranza. I have reviewed and concur with the information entered by Aileen Carranza. This document represents the service I personally performed and the decisions made by me, Jennifer Severino ARNP. History of Present Illness Service Date and Time: 03/02/2023 1052 Previous diagnosis: Extremely Severe, Obstructive Sleep Apnea-Hypopnea Syndrome AHI: 106.7 (in 2021) Reason for follow up: other (3 MONTH F/U) Equipment type: CPAP (RESMED Airsense 10, s/u 07/2022; SD CARD NEEDED FOR DOWNLOAD AND PRESSURE CHANGE) Equipment obtained from: Other ([facility]; getting supplies but is not happy with) Mask style: Nasal (over the nose) Backup mask available: Yes (old mask) Last cushion change: 1 month Prior sleep studies: No Type of Sleep Study: Polysomnography (COMPLETED 05-27-22) HPI additional information: AILEEN BENSON was diagnosed to have extremely severe, AHI 106.7, obstructive sleep apnea-hypopnea syndrome and returned today for CPAP therapy three month follow-up. Sleep Study - Results Type of Sleep Study: Polysomnography (COMPLETED 05-27-22) Prior sleep studies: No CPAP Compliance Data - Data Reviewed with Patient Average duration of nightly device use: 6 hours 18 minutes Compliance rate %: 96 (90/90 days used) Current pressure setting (cmH2O): 6-9 Average residual AHI: 0.3 Central apnea: 0.1 Obstructive apnea: 0.2 Average large leak: 0.1 L/min Subjective Patient concerns: denies: aerophagia, mask discomfort, air blowing in eyes, mask leak noise, condensation in mask/hose, nasal congestion, dry mouth, nose, throat, epistaxis Observed to snore while using device: No Current pressure setting perceived as: comfortable On therapy, patient: reports: sleeping better, awakening more refreshed, being more awake and alert during the day, more rested overall. denies: drowsiness while driving Initial [place] Sleepiness Scale score: 16 (04/2022) Current [place] Sleepiness Scale score: 9 (03/02/23) Allergies and Home Medications Known drug allergies: Yes (Sulfa) Drug allergies reviewed: Yes Home medication list reviewed: Yes (no changes) Allergy and home medication list: Allergies Sulfa (Sulfonamide Antibiotics) Allergy (Verified 03/01/23 15:12) Unknown Review of Systems Review of systems same as previous: Yes (no changes) Physical Exam Vital signs obtained and entered by: AILEEN Dowd MA Blood Pressure: 128/76 (LEFT ARM) Cuff size: regular Heart Rate: 74 O2 Saturation: 98 Height: 5 ft 3 in Weight: 218 lb 6.4 oz Body Mass Index: 38.7 BMI Classification: Obese Impression and Plan 1. Obstructive Sleep Apnea-Hypopnea Syndrome, extremely severe, with good treatment compliance and good apnea control. On CPAP therapy, the patient has better sleep quality and is more rested overall. She has not been completely happy with her DME supplier. She would have liked to try different styles of masks, but states she likes her nasal pillows mask right now. It just took her some time to be able to get some replacement cushions but now she has what she needs. I offer to order a mask fitting and she does not want a mask re-fitting at this time. Patient has significant improvement of their sleep apnea and is satisfied with current CPAP therapy. Patient denies problems with oral dryness, nasal congestion, epistaxis, skin irritation or aerophagia. Patient's apnea severity and rationale for treatment to reduce apnea, improve sleep quality and reduce cardiovascular and cerebrovascular events was reviewed. I also reviewed the benefit of consistent device use of CPAP for anxiety. 2. Obesity, unspecified. Currently patients BMI is 38.7. Obesity increases the risk of apnea, CPAP pressure requirements and overall health risks especially cardiovascular and diabetes. Thus patient is advised to lose weight. * Continue auto CPAP pressure at 6-9 cmH2O * Notify me if snoring with mask or feeling that the pressure is too much or too little * Attempt to lose weight * Call this office if any problems using CPAP * Return for follow up in 6 months, or sooner if concerns arise Counseling Topics: Spare mask, Weight loss health impact Visit Type: In Office Time Spent with Patient (minutes): 18 Provider Statement: I spent 100% of the Face to Face Visit with the patient with greater than 50% spent counseling the patient and coordination of care.
[2023-03-02 11:18] VITALS: BP 128/76
== END 2023-03-02 10:53 | disposition home or self-care (01) ==
LOC: SC 10:52
PROVIDERS: ATTEND Nurse Practitioner Family
DX: G47.33 Obstructive sleep apnea (adult) (pediatric) (principal); E66.9 Obesity, unspecified; Z68.38 Body mass index [BMI] 38.0-38.9, adult
CPT/HCPCS: 99212

== ENCOUNTER 2023-08-31 11:33 | Outpatient (CLI) | payer OTHER ==
--- NOTE | 2023-08-31 12:12 | Sleep Patient Instructions ---
Sleep Center Visit Summary - Patient Visit Information Reason for Visit: 8-month follow-up for PAP therapy - Patient Instructions Additional Instructions: You were here for follow up of CPAP therapy. You will be continued on CPAP therapy with pressure at 6-9 cmH2O. We are going to do a transfer of care for your CPAP supplies and a mask fitting for the F&P Brevida nasal pillows mask. You should follow up with sleep care in 12 months. You may contact us sooner for any questions or concerns. - Clinic Information Contact: [facility] [address] [place] [address] [email or web address] T: [phone]
--- NOTE | 2023-08-31 12:20 | SLEEP CARE CONSULTATION ---
Information from patient questionnaire entered by Sejal Carranza. I have reviewed and concur with the information entered by Sejal Carranza. This document represents the service I personally performed and the decisions made by me, Jennifer Severino ARNP. History of Present Illness Service Date and Time: 08/31/2023 1133 Previous diagnosis: Extremely Severe, Obstructive Sleep Apnea-Hypopnea Syndrome AHI: 106.7 (in 2021) Reason for follow up: other (8 MONTH F/U) Equipment type: CPAP (RESMED Airsense 10, s/u 07/2022; SD CARD NEEDED FOR DOWNLOAD AND PRESSURE CHANGE) Equipment obtained from: Other ([facility]; getting supplies; billing is confusing) Mask style: Nasal (over the nose) Backup mask available: Yes Last cushion change: 1 month Prior sleep studies: No Type of Sleep Study: Polysomnography (COMPLETED 05-27-22) HPI additional information: SEJAL BENSON was diagnosed to have extremely severe, AHI 106.7, obstructive sleep apnea-hypopnea syndrome and returned today for CPAP therapy eight month follow-up. Sleep Study - Results Type of Sleep Study: Polysomnography (COMPLETED 05-27-22) Prior sleep studies: No CPAP Compliance Data - Data Reviewed with Patient Average duration of nightly device use: 6 hours 16 minutes Compliance rate %: 96 (180/180 days used) Current pressure setting (cmH2O): 6-9 Average residual AHI: 0.5 Central apnea: 0.1 Obstructive apnea: 0.4 Average large leak: 0.0 Subjective Patient concerns: reports: air blowing in eyes (occasional). denies: aerophagia, mask discomfort, mask leak noise, condensation in mask/hose, nasal congestion, dry mouth, nose, throat, epistaxis Observed to snore while using device: No Current pressure setting perceived as: comfortable On therapy, patient: reports: sleeping better, awakening more refreshed, being more awake and alert during the day, more rested overall. denies: drowsiness while driving Initial [place] Sleepiness Scale score: 16 (04/2022) Current [place] Sleepiness Scale score: 8 Allergies and Home Medications Known drug allergies: Yes (as listed) Drug allergies reviewed: Yes Home medication list reviewed: Yes (no changes) Allergy and home medication list: Allergies Sulfa (Sulfonamide Antibiotics) Allergy (Verified 08/26/23 17:54) Unknown Review of Systems Review of systems same as previous: Yes (no changes) Physical Exam Vital signs obtained and entered by: [employer] Blood Pressure: 122/82 Cuff size: regular (left arm) Heart Rate: 80 O2 Saturation: 98 Height: 5 ft 3 in Weight: 222 lb 6.4 oz Body Mass Index: 39.4 BMI Classification: Obese Impression and Plan 1. Obstructive Sleep Apnea-Hypopnea Syndrome, extremely severe, with good treatment compliance and good apnea control. On CPAP therapy, the patient has better sleep quality and is more rested overall. Sejal is not happy with her current DME supplier because the billing is very confusing. She would like to change if she is able for a new supplier. She has been using her same machine since July 2022. We will do a transfer of care to a new DME supplier. She also would like to change her mask for one that she saw in our waiting room. She likes the look of the [employer] Brevida nasal pillows mask. I will add a mask refitting to her supply prescription and have it faxed to her new DME. We will follow-up with her next year. Patient's apnea severity and rationale for treatment to reduce apnea, improve sleep quality and reduce cardiovascular and cerebrovascular events was reviewed. I also reviewed the benefit of consistent device use of CPAP for anxiety. Patient also asked if she could use her 's machine. She says he got a CPAP but due to issues he will not be using it. She would like to change to his Airsense 11 since it is a newer model and has the ability to connect to an noe on her phone. I told her that she we will have to have it calibrated to her pressure settings and that she should notify her new DME supplier to make the changes. 2. Obesity, unspecified. Currently patients BMI is 39.4. Obesity increases the risk of apnea, CPAP pressure requirements and overall health risks especially cardiovascular and diabetes. Thus patient is advised to lose weight. * Continue auto CPAP pressure at 6-9 cmH2O * Transfer DME * Mask fitting for F&P Brevida nasal pillows mask * Notify me if snoring with mask or feeling that the pressure is too much or too little * Attempt to lose weight * Call this office if any problems using CPAP * Return for follow up in 12 months, or sooner if concerns arise Counseling Topics: Spare mask, Weight loss health impact Prescriptions: Device supplies ( with DME transfer and mask refitting for nasal pillows mask) Follow up with Sleep Care in: 1 year Visit Type: In Office Time Spent with Patient (minutes): 24 Provider Statement: I spent 100% of the Face to Face Visit with the patient with greater than 50% spent counseling the patient and coordination of care.
[2023-08-31 12:26] VITALS: BP 122/82; O2SAT 98
== END 2023-08-31 11:34 | disposition home or self-care (01) ==
LOC: SC 11:33
PROVIDERS: ATTEND Nurse Practitioner Family
DX: G47.33 Obstructive sleep apnea (adult) (pediatric) (principal); E66.9 Obesity, unspecified; Z68.39 Body mass index [BMI] 39.0-39.9, adult
CPT/HCPCS: 99212; 99213

== ENCOUNTER 2024-02-22 08:00 | Outpatient (CLI) | payer OTHER | END 2024-02-22 23:59 | disposition home or self-care (01) | LOC: LAB.N 08:00 | PROVIDERS: ATTEND Physician Assistant Medical | DX: R30.0 Dysuria (principal) | CPT/HCPCS: 87077; 87086 ==

== ENCOUNTER 2024-03-20 14:15 | Outpatient (CLI) | payer OTHER | END 2024-03-20 14:30 | disposition home or self-care (01) | LOC: LAB.N 14:15 | PROVIDERS: ATTEND Physician Assistant | DX: R30.0 Dysuria (principal) | CPT/HCPCS: 87086 ==